=== PATIENT | female | born 1995 | race Hispanic/Latino ===

== ENCOUNTER 2020-11-23 21:32 | Emergency (ER) | payer OTHER ==
[~2020-11-23] VITALS: Ht 165.1 cm; Wt 83.5 kg
== END 2020-11-23 23:05 | disposition home or self-care (01) ==
LOC: ER 22:52
DX: U07.1 COVID-19 (principal); R06.02 Shortness of breath; R05 Cough
CPT/HCPCS: 99282

== ENCOUNTER 2022-02-10 01:36 | Emergency (ER) | payer OTHER ==
[~2022-02-10] VITALS: Ht 165.1 cm; Wt 83.5 kg
[2022-02-10] MEDS ORDERED: ONDANSETRON HCL INJ 2MG/ML 2ML 2 MG/ML VIAL IV STA (01:51)
[2022-02-10] MEDS ORDERED: DICYCLOMINE HCL 20 MG/2 ML VIAL IM ONE ×2 (02:00→02:06)
[2022-02-10] MEDS ORDERED: Morphine 4mg Syringe 4 MG/ML INJ IV ONE (02:00)
[2022-02-10 02:02] LABS: BASOPHILS # (AUTO) 0.1 (0.0-0.1); BASOPHILS % 0.5 % (0.0-1.0); EOSINOPHILS # (AUTO) 0.2 (0.0-0.4); EOSINOPHILS % 1.6 % (0.0-6.0); HEMATOCRIT 44.1 % (34.2-44.1); HEMOGLOBIN 14.4 g/dL (12.0-16.0); LYMPHOCYTES # (AUTO) 4.1 (1.0-3.2); LYMPHOCYTES % 34.7 % (18.0-39.1); MEAN CORPUSCULAR HEMOGLOBIN 28.6 pg (28-32); MEAN CORPUSCULAR HGB CONC 32.7 g/dL (31-35); MEAN CORPUSCULAR VOLUME 87.5 fL (81-99); MONOCYTES # (AUTO) 0.7 (0.2-0.8); NEUTROPHILS # (AUTO) 6.6 (2.1-6.9); NEUTROPHILS % 56.9 % (38.7-80.0); PLATELET COUNT 314 x10e3/uL (140-360); RED BLOOD COUNT 5.04 x10e6/uL (3.6-5.1); RED CELL DISTRIBUTION WIDTH 12.6 % (11.7-14.4)
[2022-02-10] MEDS ORDERED: ONDANSETRON HCL INJ 2MG/ML 2ML 2 MG/ML VIAL ONE (02:06)
[2022-02-10] MEDS ORDERED: Morphine 4mg Syringe 4 MG/ML INJ ONE (02:06)
[2022-02-10] MEDS ORDERED: SODIUM CHLORIDE 0.9% 1000ML 1,000 ML ONE (02:07)
[2022-02-10 02:17] LABS: AMYLASE 72 U/L (25-125); LIPASE 29 U/L (8-78)
[2022-02-10 02:20] LABS: ALBUMIN 4.4 g/dL (3.5-5.0); ALBUMIN/GLOBULIN RATIO 1.1 (0.8-2.0); ANION GAP 16.1 mmol/L (8-16); CALCIUM 9.6 mg/dL (8.4-10.2); CREATININE, SERUM 0.73 mg/dL (0.57-1.11); POTASSIUM 4.1 mmol/L (3.5-5.1)
[2022-02-10 02:22] LABS: CLARITY,URINE SL CLOUDY (CLEAR); COLOR,URINE YELLOW (YELLOW); KETONES,URINE NEGATIVE (NEGATIVE); LEUKOCYTE ESTERASE ,URINE TRACE (NEGATIVE); NITRITE,URINE NEGATIVE (NEGATIVE); PROTEIN,URINE DIPSTICK NEGATIVE (NEGATIVE); URINE UROBILINOGEN 0.2 mg/dL (0.2 - 1)
[2022-02-10 02:23] LABS: BACTERIA,URINE MODERATE /HPF; EPITHELIAL CELLS,URINE MODERATE /LPF
[2022-02-10] MEDS ORDERED: IOPAMIDOL 370 MG/ML 100 ML INFUS..BTL INJ ONE (06:20)
== END 2022-02-10 04:01 | disposition home or self-care (01) ==
LOC: ER 01:50
DX: R10.30 Lower abdominal pain, unspecified (principal); R11.2 Nausea with vomiting, unspecified; N39.0 Urinary tract infection, site not specified; K52.9 Noninfective gastroenteritis and colitis, unspecified; K86.9 Disease of pancreas, unspecified
CPT/HCPCS: 36415; 74177; 80053; 81001; 81025; 82150; 83690; 85025; 99284; J0500; J2270; J2405; J7030; Q9967